=== PATIENT | male | born 1935 | race Caucasian/White ===

== ENCOUNTER 2017-07-09 21:19 | Inpatient (IN) | payer MEDICARE ==
[~2017-07-09] VITALS: Ht 177.8 cm; Wt 92.6 kg
--- NOTE | ~2017-07-09 | CON ---
[place], [place] REPORT OF CONSULTATION NAME: LUIZA LAU UNIT #: [id number] ROOM: 421 DOCTOR: LARISA FLETCHER MD BIRTHDATE: [birth year] DOS: 07/11/2017 HISTORY OF PRESENT ILLNESS: This is an 82 years old patient who has presented with chief complaint of anemia, associated with abdominal pain, microcytic indices, abdominal pain associated with leukocytosis, and CT scan of the abdomen, which was abnormal, cecum and right lower quadrant lymphadenopathy and thickening of the cecum, no diverticulitis. He was placed on antibiotic. Comprehensive metabolic panel, electrolyte balance, liver function test, GOT/GPT of 100/64. CT scan of the abdomen was reviewed in detail and as indicated on the chart, hemoglobin A1c of 5.3. Comprehensive metabolic panel within normal limit. Urine culture normal. Blood cultures normal. PAST MEDICAL HISTORY: Associated protein-calorie malnutrition, seasonal allergies. PAST SURGICAL HISTORY: None. SOCIAL HISTORY: Nonsmoker, however, drinks wine daily. ALLERGIES: To no known medications. MEDICATIONS: Antihistamines. REVIEW OF SYSTEMS: HEENT: Denies double vision, blurred vision. RESPIRATORY: Denies shortness of breath. CARDIOVASCULAR: Denies acute chest pain. DIGESTIVE SYSTEM: No hematemesis, no hematochezia, cross abdominal pain. PHYSICAL EXAMINATION: VITAL SIGNS: Stable. HEENT: Head normocephalic, nontraumatic. Mouth and buccal mucosa benign. NECK: Supple, no thyromegaly, no cervical lymphadenopathy. CHEST: Symmetric anatomy, equal expansion. No wheeze, no rhonchi. HEART: At times, premature contractions are auscultated, soft systolic murmur. ABDOMEN: Soft. No hepato-organomegaly. Bowel sounds present. EXTREMITIES: No cyanosis, no pedal edema. NEUROLOGIC: Alert and slow. IMPRESSION: Microcytic indices, concerns of etiology, abdominal pain ____. Lipase have been normal repeatedly. PLAN AND DISCUSSION: Endoscopic assessment of upper and lower GI tract. Thank you very much. [place], [place] REPORT OF CONSULTATION NAME: LUIZA LAU UNIT #: [id number] ROOM: 421 DOCTOR: LARISA FLETCHER MD BIRTHDATE: [birth year] LARISA FLETCHER MD CM:CONSTR:REPORT OF CONSULTATION 1205 07/12/17 0111 interface
--- NOTE | ~2017-07-09 | O ---
[place], [place] OPERATIVE NOTE NAME: LUIZA LAU UNIT #: [id number] ROOM: 421 DOCTOR: LARISA FLETCHER MD BIRTHDATE: [birth year] DOS: 07/11/2017 GASTROENDOSCOPIC REPORT #1 INDICATIONS: This is an 82-year-old patient who presented with microcytic indices ____ abdominal pain, undergoing investigation. Consultation has been dictated already. PROCEDURE: Today's procedure part of investigation is panendoscopy plus biopsy plus colonoscopy. PREMEDICATION: Versed and Diprivan. SCOPE: Olympus folding colonoscope 10L video. REPORT: After putting the patient in left lateral position and application of lubricant to the scope, the scope was introduced. Thereafter, under direct visualization, advanced through the length of esophagus without difficulty. Small hiatal hernia was noticed. Gastric pouch was entered. Gastritis seen. Duodenal bulb, second and third part are inspected. Duodenitis and multiple small ulcerations that are appearing to be superficial was noticed. Photographic series obtained. Air was suctioned out. Biopsy from distant margin of the ulcer obtained. The patient tolerated procedure well. IMPRESSION: Duodenitis, multiple small duodenal ulcers, gastritis, small hiatal hernia. PLAN AND DISCUSSION: We are going to proceed with colonoscopy. GASTROENDOSCOPIC REPORT #2 INDICATIONS: The patient has presented with microcytic anemia, undergoing investigation. PROCEDURE: Today's procedure part of investigation is colonoscopy. PREMEDICATION: Versed and Diprivan. SCOPE: Olympus folding colonoscope 10L video. REPORT: After putting the patient in left lateral position and application of lubricant to the scope, the scope was introduced. Thereafter, under direct visualization, advanced through the length of colon approximately 120 cm. Severe tortuosity of the colon had some were about hepatic flexure does not permit the easy passage of the scope beyond. Therefore, after multiple maneuvers, which was not successful. The patient extubated, tolerated procedure well. IMPRESSION: Retained liquid stool, tortuous colon. [place], [place] OPERATIVE NOTE NAME: LUIZA LAU UNIT #: [id number] ROOM: 421 DOCTOR: LARISA FLETCHER MD BIRTHDATE: [birth year] PLAN AND DISCUSSION: Due to the fact the CT scan has been suggested above abnormalities and thickening of the cecum as well as a microcytic anemia. I am going to proceed with completion study with x-ray barium enema. Workup in progress. As far as the upper GI finding is concerned Protonix 40 mg daily would suffice management. Thank you very much indeed. LARISA FLETCHER MD CM:OPRECORD:OPERATIVE NOTE [id number] LARISA FLETCHER MD 07/11/17 1351 interface
[2017-07-09 21:34] VITALS: BP 143/67
[2017-07-09 21:55] VITALS: BP 147/71
[2017-07-09 22:29] LABS: BASO % 0.2 % (0.0-1.0); EOS # 0.1 10*3/uL (0.0-0.4); EOS % 0.5 % (1.0-4.0); HEMATOCRIT 29.6 % (42.0-52.0); HEMOGLOBIN 9.2 g/dl (14.0-18.0); LYMPH # 0.8 10*3/uL (1.3-4.4); LYMPH % 6.5 % (27.0-41.0); MEAN CELL VOLUME 76.9 fl (80.0-94.0); MEAN CORPUSCULAR HGB 23.9 pg (27.0-31.0); MEAN CORPUSCULAR HGB CONC 31.1 g/dl (33.0-37.0); MONO # 1.4 10*3/uL (0.1-1.0); MONO % 10.5 % (3.0-9.0); NEUT # 10.6 10*3/uL (2.3-7.9); NEUT % 81.8 % (47.0-73.0); PLATELET COUNT AUTOMATED 269 10*3/uL (130-400); RED BLOOD COUNT 3.85 10*6/uL (4.50-5.90); RED CELL DISTRI WIDTH 17.4 % (0-14.5); WHITE BLOOD COUNT 12.9 10*3/uL (4.8-10.8)
[2017-07-09 22:42] LABS: ACT PARTIAL THROMBO TIME 27.9 SECONDS (20.8-31.5); INTERNATIONAL NORM RATIO 1.1 (2.0-3.5)
[2017-07-09 22:47] LABS: ALBUMIN 2.3 gm/dl (3.1-4.5); ALKALINE PHOSPHATASE 73 U/L (45-117); BUN 17 mg/dl (7-24); CHLORIDE 98 mmol/L (98-107); CREATININE 1.27 mg/dL (0.70-1.30); LIPASE 53 U/L (73-393); POTASSIUM 3.7 mmol/L (3.5-5.1); SGOT/AST 100 IU/L (3-35); SGPT/ALT 67 U/L (12-78); SODIUM 132 mmol/L (136-145); TOTAL PROTEIN 6.5 gm/dL (6.4-8.2); TROPONIN I < 0.015 ng/ml (<0.045)
[2017-07-09 22:50] VITALS: BP 138/65
[2017-07-09 22:57] LABS: BILIRUBIN NEGATIVE (NEGATIVE); BLOOD TRACE-INTACT (NEGATIVE); CLARITY SL CLOUDY (CLEAR); COLOR YELLOW (YELLOW); GLUCOSE NEGATIVE (NEGATIVE); KETONE NEGATIVE (NEGATIVE); LEUKO ESTERASE NEGATIVE (NEGATIVE); NITRITE NEGATIVE (NEGATIVE)
[2017-07-09 23:03] LABS: EPITHELIAL CELLS 0-1; RBC 0-2 rbc/hpf (0-2)
[2017-07-09 23:04] LABS: BACTERIA 4+; MUCOUS TRACE
[2017-07-09 23:26] VITALS: BP 119/57
[2017-07-10 00:45] VITALS: BP 120/56
[2017-07-10 01:00] VITALS: BP 120/56
[2017-07-10 07:21] LABS: BASO # 0.1 10*3/uL (0.0-0.1); BASO % 0.5 % (0.0-1.0); EOS # 0.2 10*3/uL (0.0-0.4); EOS % 2.3 % (1.0-4.0); HEMATOCRIT 27.2 % (42.0-52.0); HEMOGLOBIN 8.2 g/dl (14.0-18.0); LYMPH # 1.1 10*3/uL (1.3-4.4); LYMPH % 10.2 % (27.0-41.0); MEAN CELL VOLUME 78.8 fl (80.0-94.0); MEAN CORPUSCULAR HGB 23.8 pg (27.0-31.0); MEAN CORPUSCULAR HGB CONC 30.1 g/dl (33.0-37.0); MEAN PLATELET VOLUME 9.9 fl (9.6-12.3); MONO # 1.1 10*3/uL (0.1-1.0); MONO % 10.7 % (3.0-9.0); NEUT # 7.8 10*3/uL (2.3-7.9); NEUT % 75.8 % (47.0-73.0); PLATELET COUNT AUTOMATED 228 10*3/uL (130-400); RED BLOOD COUNT 3.45 10*6/uL (4.50-5.90); RED CELL DISTRI WIDTH 17.6 % (0-14.5); WHITE BLOOD COUNT 10.3 10*3/uL (4.8-10.8)
[2017-07-10 07:42] LABS: ACT PARTIAL THROMBO TIME 28.3 SECONDS (20.8-31.5); INTERNATIONAL NORM RATIO 1.1 (2.0-3.5)
[2017-07-10 07:55] LABS: BUN 17 mg/dl (7-24); CHLORIDE 103 mmol/L (98-107); CHOLESTEROL 89 mg/dL (<200); CREATININE 1.05 mg/dL (0.70-1.30); PHOSPHOROUS 2.8 mg/dL (2.5-4.9); POTASSIUM 3.9 mmol/L (3.5-5.1); SGOT/AST 62 IU/L (3-35); SGPT/ALT 52 U/L (12-78); SODIUM 138 mmol/L (136-145); TOTAL PROTEIN 5.5 gm/dL (6.4-8.2); TRIGLYCERIDES 42 mg/dl (<150); VLDL CHOLESTEROL 8 mg/dL (6-40)
[2017-07-10 08:00] VITALS: BP 150/61
[2017-07-10 08:00] LABS: ALKALINE PHOSPHATASE 65 U/L (45-117); HDL CHOLESTEROL 43 mg/dl (40-60); LDL CHOLESTEROL 38 mg/dL (9-159)
[2017-07-10 12:00] VITALS: BP 129/59
[2017-07-10 16:00] VITALS: BP 131/56
[2017-07-10 20:00] VITALS: BP 142/65
[2017-07-11] VITALS (9 sets, daily range): BP systolic 112–141; BP diastolic 51–67
[2017-07-11 05:54] LABS: BASO # 0.1 10*3/uL (0.0-0.1); BASO % 0.6 % (0.0-1.0); EOS # 0.5 10*3/uL (0.0-0.4); EOS % 5.7 % (1.0-4.0); HEMATOCRIT 27.6 % (42.0-52.0); HEMOGLOBIN 8.5 g/dl (14.0-18.0); LYMPH % 11.7 % (27.0-41.0); MEAN CELL VOLUME 79.3 fl (80.0-94.0); MEAN CORPUSCULAR HGB 24.4 pg (27.0-31.0); MEAN CORPUSCULAR HGB CONC 30.8 g/dl (33.0-37.0); MEAN PLATELET VOLUME 10.4 fl (9.6-12.3); MONO # 0.9 10*3/uL (0.1-1.0); MONO % 10.3 % (3.0-9.0); NEUT # 6.1 10*3/uL (2.3-7.9); NEUT % 71.2 % (47.0-73.0); PLATELET COUNT AUTOMATED 240 10*3/uL (130-400); RED BLOOD COUNT 3.48 10*6/uL (4.50-5.90); RED CELL DISTRI WIDTH 17.5 % (0-14.5); WHITE BLOOD COUNT 8.5 10*3/uL (4.8-10.8)
[2017-07-11 06:03] LABS: ALBUMIN 2.1 gm/dl (3.1-4.5); ALKALINE PHOSPHATASE 74 U/L (45-117); BUN 12 mg/dl (7-24); CHLORIDE 104 mmol/L (98-107); CREATININE 0.96 mg/dL (0.70-1.30); POTASSIUM 3.4 mmol/L (3.5-5.1); SGOT/AST 66 IU/L (3-35); SGPT/ALT 59 U/L (12-78); SODIUM 140 mmol/L (136-145); TOTAL PROTEIN 5.6 gm/dL (6.4-8.2)
[2017-07-12] VITALS: BP 128/55
[2017-07-12 07:31] LABS: BUN 9 mg/dl (7-24); CHLORIDE 105 mmol/L (98-107); CREATININE 0.82 mg/dL (0.70-1.30); POTASSIUM 3.5 mmol/L (3.5-5.1); SODIUM 141 mmol/L (136-145)
[2017-07-12 08:00] VITALS: BP 141/84
[2017-07-12 12:00] VITALS: BP 136/82
[2017-07-12 16:00] VITALS: BP 127/54
[2017-07-12 19:55] VITALS: BP 139/58
[2017-07-13] VITALS (7 sets, daily range): BP systolic 107–155; BP diastolic 51–69
== END 2017-07-13 16:49 | disposition home or self-care (01) | DRG 871 ==
LOC: ED 21:19 → 4E 07-10 00:05 → EDHOLD 07-10 00:05 → 4E 07-10 00:12
PROVIDERS: Family Medicine; Internal Medicine; Physician Assistant
PROC: 0DB98ZX Excision of Duodenum, Via Natural or Artificial Opening Endoscopic, Diagnostic (ICD-10-PCS; principal; 2017-07-11)
PROC: 0DJD8ZZ Inspection of Lower Intestinal Tract, Via Natural or Artificial Opening Endoscopic (ICD-10-PCS; principal; 2017-07-11)
PROC: 0DBL8ZX Excision of Transverse Colon, Via Natural or Artificial Opening Endoscopic, Diagnostic (ICD-10-PCS; 2017-07-13)
DX: A41.9 Sepsis, unspecified organism (principal); E43 Unspecified severe protein-calorie malnutrition; E87.1 Hypo-osmolality and hyponatremia; E83.41 Hypermagnesemia; K26.9 Duodenal ulcer, unspecified as acute or chronic, without hemorrhage or perforation; K63.9 Disease of intestine, unspecified; K52.9 Noninfective gastroenteritis and colitis, unspecified; J30.2 Other seasonal allergic rhinitis; K29.80 Duodenitis without bleeding; K44.9 Diaphragmatic hernia without obstruction or gangrene; R73.9 Hyperglycemia, unspecified; K29.70 Gastritis, unspecified, without bleeding; D50.9 Iron deficiency anemia, unspecified; Z68.29 Body mass index [BMI] 29.0-29.9, adult; Z82.3 Family history of stroke; Z82.0 Family history of epilepsy and other diseases of the nervous system

== ENCOUNTER 2017-07-18 20:10 | Inpatient (IN) | payer MEDICARE ==
[2017-07-18] VITALS (9 sets, daily range): BP systolic 112–133; BP diastolic 59–76
[~2017-07-18] VITALS: Ht 177.8 cm; Wt 90.9 kg
[2017-07-18] MEDS ORDERED: CLARITIN10 MG PO (20:30)
[2017-07-18] MEDS ORDERED: ASPIRIN CHEWABL81 MG PO (20:30)
[2017-07-18 21:07] LABS: BASO # 0.1 10*3/uL (0.0-0.1); BASO % 0.8 % (0.0-1.0); EOS # 0.1 10*3/uL (0.0-0.4); EOS % 2.1 % (1.0-4.0); HEMATOCRIT 30.8 % (42.0-52.0); HEMOGLOBIN 9.5 g/dl (14.0-18.0); LYMPH # 1.9 10*3/uL (1.3-4.4); MEAN CORPUSCULAR HGB 24.1 pg (27.0-31.0); MEAN CORPUSCULAR HGB CONC 30.8 g/dl (33.0-37.0); MEAN PLATELET VOLUME 9.6 fl (9.6-12.3); MONO # 0.6 10*3/uL (0.1-1.0); MONO % 9.2 % (3.0-9.0); NEUT # 3.9 10*3/uL (2.3-7.9); NEUT % 59.3 % (47.0-73.0); PLATELET COUNT AUTOMATED 367 10*3/uL (130-400); RED BLOOD COUNT 3.95 10*6/uL (4.50-5.90); RED CELL DISTRI WIDTH 18.3 % (0-14.5); WHITE BLOOD COUNT 6.6 10*3/uL (4.8-10.8)
[2017-07-18 21:16] LABS: INTERNATIONAL NORM RATIO 1.1 (2.0-3.5)
[2017-07-18 21:23] LABS: ALBUMIN 2.8 gm/dl (3.1-4.5); ALKALINE PHOSPHATASE 66 U/L (45-117); BUN 15 mg/dl (7-24); CHLORIDE 99 mmol/L (98-107); CREATININE 1.08 mg/dL (0.70-1.30); LIPASE 121 U/L (73-393); POTASSIUM 4.4 mmol/L (3.5-5.1); SGOT/AST 43 IU/L (3-35); SGPT/ALT 38 U/L (12-78); SODIUM 135 mmol/L (136-145); TOTAL PROTEIN 6.9 gm/dL (6.4-8.2)
[2017-07-18 21:29] LABS: TROPONIN I < 0.015 ng/ml (<0.045)
[2017-07-18 22:31] LABS: ABG BASE EXCESS 0.9 mmol/L (-2.0-2.0); ABG HCO3 23.7 mmol/l (22-26); ABG O2 SATURATION 93.5 % (95-97); ARTERIAL BLOOD GAS PH 7.473 (7.35-7.45); ARTERIAL BLOOD GAS PO2 73.7 mmHg (80-90)
[2017-07-18 22:45] LABS: BILIRUBIN NEGATIVE (NEGATIVE); BLOOD NEGATIVE (NEGATIVE); CLARITY CLEAR (CLEAR); COLOR YELLOW (YELLOW); GLUCOSE NEGATIVE (NEGATIVE); KETONE NEGATIVE (NEGATIVE); LEUKO ESTERASE NEGATIVE (NEGATIVE); NITRITE NEGATIVE (NEGATIVE); PH 5.5 (5.0-9.0); UROBILINOGEN 0.2 E.U./dl (0.2-1.0)
[2017-07-18 22:56] LABS: WBC 0-2 wbc/hpf (0-5)
[2017-07-19] VITALS (7 sets, daily range): BP systolic 100–132; BP diastolic 61–76
[2017-07-19 08:14] LABS: BASO # 0.1 10*3/uL (0.0-0.1); EOS # 0.2 10*3/uL (0.0-0.4); EOS % 3.1 % (1.0-4.0); HEMATOCRIT 26.5 % (42.0-52.0); HEMOGLOBIN 8.1 g/dl (14.0-18.0); LYMPH # 1.3 10*3/uL (1.3-4.4); LYMPH % 27.5 % (27.0-41.0); MEAN CELL VOLUME 78.6 fl (80.0-94.0); MEAN CORPUSCULAR HGB CONC 30.6 g/dl (33.0-37.0); MEAN PLATELET VOLUME 9.8 fl (9.6-12.3); MONO # 0.6 10*3/uL (0.1-1.0); NEUT # 2.7 10*3/uL (2.3-7.9); NEUT % 55.6 % (47.0-73.0); PLATELET COUNT AUTOMATED 291 10*3/uL (130-400); RED BLOOD COUNT 3.37 10*6/uL (4.50-5.90); RED CELL DISTRI WIDTH 18.1 % (0-14.5); WHITE BLOOD COUNT 4.8 10*3/uL (4.8-10.8)
[2017-07-19 08:26] LABS: ALBUMIN 2.3 gm/dl (3.1-4.5); BUN 12 mg/dl (7-24); CHLORIDE 104 mmol/L (98-107); POTASSIUM 3.9 mmol/L (3.5-5.1); SODIUM 137 mmol/L (136-145)
[2017-07-19 08:30] LABS: ALKALINE PHOSPHATASE 54 U/L (45-117); CREATININE 0.91 mg/dL (0.70-1.30); PHOSPHOROUS 3.5 mg/dL (2.5-4.9); SGOT/AST 32 IU/L (3-35); SGPT/ALT 31 U/L (12-78); TOTAL PROTEIN 5.8 gm/dL (6.4-8.2)
== END 2017-07-20 02:07 | disposition expired | DRG 374 ==
LOC: ED 20:10 → EDHOLD 07-19 00:09 → ICCU 07-19 00:09 → 4E 07-19 00:20 → ICCU 07-19 23:16
PROVIDERS: Emergency Medicine Emergency Medical Services; Hospitalist
DX: C18.9 Malignant neoplasm of colon, unspecified (principal); J96.00 Acute respiratory failure, unspecified whether with hypoxia or hypercapnia; E43 Unspecified severe protein-calorie malnutrition; E87.1 Hypo-osmolality and hyponatremia; R00.1 Bradycardia, unspecified; E83.41 Hypermagnesemia; D50.9 Iron deficiency anemia, unspecified; R00.0 Tachycardia, unspecified; R73.9 Hyperglycemia, unspecified; I10 Essential (primary) hypertension; J30.2 Other seasonal allergic rhinitis; R26.2 Difficulty in walking, not elsewhere classified; K63.9 Disease of intestine, unspecified; Z82.3 Family history of stroke; Z82.0 Family history of epilepsy and other diseases of the nervous system; Z79.82 Long term (current) use of aspirin; Z79.899 Other long term (current) drug therapy; Z68.28 Body mass index [BMI] 28.0-28.9, adult; Z85.828 Personal history of other malignant neoplasm of skin